=== PATIENT | male | born 1995 | race Two or more races ===

== ENCOUNTER 2024-04-29 08:38 | Emergency (ER) | payer OTHER, SELFPAY ==
[2024-04-29 08:41] VITALS: BP 141/79; PULSE 65; RESP 18; TEMP 36.7; O2SAT 100; BMI 27.2
--- NOTE | 2024-04-29 08:56 | ED_ITS ---
HPI - Back Pain/Injury General Chief Complaint: Back Pain/Injury Stated Complaint: back pain Time Seen by Provider: 04/29/24 08:55 Source: patient Mode of arrival: ambulatory Limitations: no limitations History of Present Illness ED Provider: Moni Otot NP HPI Narrative: Patient is a 28-year-old male who presents emergency department for evaluation of lower back pain. Initial nursing triage reports middle of the lower back however he is pointing to the right paraspinal muscle region radiates sometimes down into his buttock. He denies any notable precipitating injury. However he does state that he lifts heavy dumbbells at the gym and does a lot of heavy lifting at work. The pain is intermittent and at times feels slightly improved if he stretches. He has not taken any OTC analgesics for this, has not applied ice or heat or any topical remedies. Denies fevers, chills, burning with micturition, urinary frequency/urgency/hesitancy, bladder or bowel dysfunction, numbness or tingling of the perineum or bilateral legs. Denies any recent surgical procedures, any known immune compromising conditions, personal history of cancer, or IV drug usage. MD elicited complaint: back pain Related Data Previous Rx's ?Medication ?Instructions ?Recorded cyclobenzaprine 5 mg tablet 5 mg PO TID PRN muscle spasm #14 04/29/24 tabs ibuprofen 600 mg tablet 600 mg PO Q6H PRN pain #30 tabs 04/29/24 Allergies Allergy/AdvReac Type Severity Reaction Status Date / Time Penicillins Allergy Unknown Unknown Verified 04/29/24 08:44 Review of Systems Review of Systems: Yes all other systems are reviewed and are negative [facility] Past Medical History Attestation statement: The following information was validated with the patient. Source: old records reviewed Surgical History No pertinent past surgical history Family History Family History Mother Hypertension Father Hypertension Diabetes Social History Social History Housing: Apartment Alcohol intake: current Alcohol intake frequency: a few times a week Alcohol type: beer, wine and hard liquor Patient Tobacco Use Status: Former Tobacco user Tobacco use type: Cigarette e-Cigarette/Vaping Use: Never Used Second Hand Smoke Exposure: No service: No Current occupational status: employed Current occupational exposures/hazards: No Cognitive needs: No Hearing needs: No Vision needs: No Physical Exam Vital Signs: Vital Signs: Last Vital Signs Temp 98.0 F 04/29/24 08:41 Pulse 65 04/29/24 08:41 Resp 18 04/29/24 08:41 BP 141/79 H 04/29/24 08:41 Pulse Ox 100 04/29/24 08:41 O2 Del Method Room Air 04/29/24 08:41 BMI result Body Mass Index 27.2 Appearance: Alert.?Oriented to person, place and time. No acute distress.?Normal affect. Eyes: Pupils equal, round and reactive to light.? ENT: Pharynx normal.?? Neck: Normal inspection.? Neck supple.?? CVS: Heart sounds normal. Normal heart rate and rhythm.? Pulses normal; bilateral radial pulses 2+, bilateral posterior tibial/dorsalis pedis pulses 2+.? Respiratory: No respiratory distress.? Lung sounds clear to auscultation martina aterally?? Abdomen: Soft and non-tender. Normoactive bowel sounds. No pulsatile mass.?? Skin: Skin warm and dry.? Normal skin color.? Normal skin turgor.?? Extremities: No lower extremity edema.? No calf ttp? Back: + mild paraspinal muscular tenderness from thoracic region to lumbar region. No CVA tenderness. No midline spinal tenderness, step-off's, or deformity. Full ROM intact in bilateral lower extremities. Straight leg test negative on right; Straight leg test negative on left. No rashes, lesions, areas of induration or fluctuance, or signs of infection noted., Neuro: Moves all extremities spontaneously. 5/5 strength in hip extension/flexion, abduction, adduction. Sensation to light touch intact bilaterally. Patellar and Achilles reflex 2+ bilaterally. No ataxia, gait normal and steady.. No focal neuro deficits. Medical Decision Making Medical Decision Making MDM Narrative: Patient is a 28-year-old male presents emergency department for evaluation right back pain as per HPI without any known precipitating injury however does engage in heavy lifting, on examination has notable tenderness to the right paraspinal muscles and palpable spasming, at this time I suspect pain is most consistent with muscular pain, although cannot completely exclude herniated disc. On neurological exam there are no deficits. Generally Atraumatic in nature, no acute bony tenderness, unlikely to be spinal fracture. No recent fevers, unintentional weight loss, history of IVDA, high-risk past medical history, immunosuppression, recent surgery or lumbar puncture to suggest spinal infection, epidural abscess, malignancy. Not consistent with AAA or dissection. No genitourinary symptoms, afebrile, no CVA tenderness, unlikely urinary tract infection, pyelonephritis, renal colic. No history of nephrolithiasis/ureteral calculi. Plan for discharge home with conservative treatment, NSAID, and muscle relaxer for pain unrelieved by such, and follow-up with primary care provider, and patient agreed with plan. Differential Diagnosis Differential Diagnoses: The differential diagnosis associated with the presentation includes ( see narrative above) Admission/Observation Consideration of admission/observation: Escalation of care including admiss ion/observation considered ( see narrative above) External Record Review External record reviewed: Outpatient record Prescription Management I considered prescription management with: Pain Medication Discharge Plan Discharge Clinical Impression: Strain of lumbar region Patient Disposition: Home, Self-Care Instructions: Acute Low Back Pain (ED), R.I.C.E. Treatment (ED), Lower Back Exercises (ED) Additional Instructions: You can take ibuprofen 200 mg, 3 tablets (600mg) every 6-8 hours as needed for pain, in addition to Tylenol 500 mg, 2 tablets (1,000mg) every 4-6 hours as needed for pain, but not to exceed 3 doses daily (3,000mg).? For pain that is unrelieved by ibuprofen or Tylenol I have sent a prescription for a muscle relaxer to your pharmacy. Cyclobenzaprine/Flexeril- this medication may make you drowsy, you should not drive, drink alcohol, or work while taking this medication. Please take this medication for the 1st time in the evening when you were able to be home for the remainder of the day. You can take the medication up to 3 times a day typically every 6-8 hours so long as you can tolerate it during the day As discussed, if your pain persists after a week you should consider follow-up with your primary care doctor, they may consider radiographic imaging and/or course of physical therapy. You may return to emergency department any new or worsening symptoms or concerns Prescriptions: New ibuprofen 600 mg tablet 600 mg PO Q6H PRN (Reason: pain) Qty: 30 0RF cyclobenzaprine 5 mg tablet 5 mg PO TID PRN (Reason: muscle spasm) Qty: 14 0RF Referrals: Karla Martell MD [Primary Care Provider] - Print Language: Maldivian
[2024-04-29 09:36] VITALS: BP 141/79; PULSE 65; RESP 18; TEMP 36.7; O2SAT 100
== END 2024-04-29 09:37 | disposition home or self-care (01) ==
PROVIDERS: Emergency Provider Emergency Medicine; PCP Internal Medicine
DX: S39.012A Strain of muscle, fascia and tendon of lower back, initial encounter (principal); X50.0XXA Overexertion from strenuous movement or load, initial encounter; Z87.891 Personal history of nicotine dependence; Y93.B3 Activity, free weights; Y92.59 Other trade areas as the place of occurrence of the external cause; Y99.9 Unspecified external cause status
CPT/HCPCS: 99282; 99283

== ENCOUNTER 2024-08-15 16:52 | Outpatient (AMB) | payer OTHER, SELFPAY ==
--- NOTE | 2024-08-15 16:56 | A.OFFPC_ITS ---
Vital Signs 08/15/24 16:58 Height 6 ft Weight 204 lb BMI 27.7 BP 120/78 Blood Pressure Location Lt brachial Position Sitting Intake Visit Reasons: Med Review Instrument Designer Required: No Accompanied by: Self / Same As Patient Allergies Penicillins Allergy (Unknown, Verified 08/15/24 17:12) Unknown Medication List - Last Reconciled 08/15/24 by Karla Romero MD No Known Home Meds Tobacco use date assessed: 08/15/24 Dental Screening Dental Screen Date: 08/15/24 Did you have a dental visit in the last 12 months?: Yes Did you have a dental problem in the last 6 months where you did not have access to dental care?: No Was dental information given to patient?: Patient has dentist HPI HPI Comments History of Present Illness Details The patient is a 29-year-old male presenting with right upper quadrant abdominal pain. Onset of symptoms began in March with a noticeable swelling in the back, leading to an urgent care visit where anti-inflammatory and analgesic medications were prescribed. Current symptoms persist with no reported issues with urination or stool. The patient?s plan includes a follow-up ultrasound to assess the nature of the swelling and confirm any underlying anatomical changes. Additionally, the patient has a background of moderate depressive disorder and anxiety disorder, although he has not sought formal treatments or therapies, preferring counseling over medication. [facility] Surgical History No pertinent past surgical history Family History Mother Hypertension Father Hypertension Diabetes Social History Housing: Apartment Alcohol intake: current Alcohol intake frequency: a few times a week Alcohol type: beer, wine and hard liquor Patient Tobacco Use Status: Former Tobacco user Tobacco use type: Cigarette e-Cigarette/Vaping Use: Currently Using Second Hand Smoke Exposure: No service: No Current occupational status: employed Current occupational exposures/hazards: No Cognitive needs: No Hearing needs: No Vision needs: No Questionnaire PHQ-9 Over the last 2 weeks, how often have you been bothered by any of the following problems? 1. Little interest or pleasure in doing things: nearly every day 2. Feeling down, depressed, or hopeless: nearly every day 3. Trouble falling or staying asleep, or sleeping too much: nearly every day 4. Feeling tired or having little energy: nearly every day 5. Poor appetite or overeating: not at all 6. Feeling bad about yourself - or that you are a failure or have let yourself or your family down: not at all 7. Trouble concentrating on things, such as reading the newspaper or watching television: not at all 8. Moving or speaking so slowly that other people could have noticed. Or the opposite - being so fidgety or restless that you have been moving around a lot more than usual: not at all 9. Thoughts that you would be better off or of hurting yourself in some way: not at all Total score: 12 Depression Screening Interpretation: Positive Depression Screening Follow-up: Existing condition, Follow-up Visit Requested and Declines treatment Depression Screening Done: Yes 23472 - PHQ-9 Billing: Yes Source: Developed by Drs. Alex Candelario, Benita Espino, Abisai Christopher and colleagues, with an educational mikey from [employer]. Thrive Questionnaire Date Thrive assessed: 08/15/24 I am a: Patient What is your living situation today?: I have a steady place to live Within the past 12 months, did the food you bought not last and you didn't have the money to get more?: Never true Within the past 12 months, did you worry whether your food would run out before you got money to buy more?: Never true Do you have trouble paying for medicines?: No Do you have trouble getting transportation to medical appointments?: No Do you have trouble paying your heating and electricity bill?: No Do you have trouble taking care of your child, family member or friend?: No Do you have trouble with day-to-day activities such as bathing, preparing meals, shopping, managing finances, etc.?: No Are you currently unemployed and looking for a job?: No Are you interested in more education?: No Please select the resources that you would like help with: None Currently or been in a relationship where the following occur: No concerns reported THRIVE Score: 0 AUDIT C Alcohol Use Questionnaire (AUDIT-C) 1. How often do you have a drink containing alcohol?: Monthly or less 2. How many drinks containing alcohol do you have on a typical day when you are drinking?: 3 or 4 3. How often do you have six or more drinks on one occasion?: Never Total Score: 2 SERJIO-7 AMB Questionnaire SERJIO-7 Date SERJIO - 7 assessed: 08/15/24 Feeling nervous, anxious, or on edge: 3 = Nearly every day Not being able to stop or control worryin = Not at all Worrying too much about different things: 3 = Nearly every day Trouble relaxin = Not at all Being so restless that it is hard to sit still: 0 = Not at all Becoming easily annoyed or irritable: 1 = Several days Feeling afraid as if something awful might happen: 1 = Several days Total SERJIO-7 score (0-4 normal; 5-9 mild; 10-14 moderate; 15-21 severe): 8 Source: Developed by Drs. Alex Candelario, Benita Espino, Abisai Christopher and colleagues, with an educational mikey from [employer]. SERJIO-7 Assessment Billing SERJIO-7 Assessment Tool: SERJIO-7 Assessment 96832 Review of Systems Const All systems reviewed & are unremarkable except as noted in HPI and below Card Denies chest pain at rest, Denies chest pain with activity, Denies edema, Denies irregular heart rhythm, Denies claudication, Denies dyspnea, Denies dyspnea on exertion, Denies orthopnea, Denies paroxysmal nocturnal dyspnea and Denies slow heart rate Resp Denies cough, Denies dyspnea and Denies dyspnea on exertion GI Denies abdominal pain, Denies change in bowel habits, Denies excessive flatus, Denies nausea and Denies vomiting Physical exam (Primary Care) Vital Signs: Last Vital Signs BP 120/78 08/15/24 16:58 BMI result Body Mass Index 27.7 Tobacco/Smoking Status: Tobacco use Status Tobacco use date assessed 08/15/24 08/15/24 17:08 Patient Tobacco Use Status Former Tobacco user 08/15/24 17:08 Tobacco use type Cigarette 08/15/24 17:08 e-Cigarette/Vaping Use Currently Using 08/15/24 17:08 PHQ-9: PHQ-9 Score PHQ-9: Total score 12 08/15/24 17:08 Depression Screening Interpretation: Positive Depression Screening Follow-up: Existing condition, Follow-up Visit Requested and Declines treatment Thrive Assessment: Date of Thrive Assessment Date Thrive assessed 08/15/24 08/15/24 17:08 Currently or been in a relationship where the following occur: No concerns reported Resp Effort & Inspection: normal respiratory effort Auscultation: clear to auscultation bilaterally Cardio Jugular venous distension: no JVD Rate: regular rate Rhythm: regular rhythm Heart sounds: S1 normal heart sound present and S2 normal heart sound present GI Inspection: Yes normal to inspection Palpation (GI): Soft to palpation and nontender Auscultation: normal bowel sounds Coding Level of Care Code Est Pt Level 3 (68341) Complex EM visit Add On G2211 Diagnoses Right upper quadrant abdominal pain R10.11 Moderate recurrent major depression F33.1 SERJIO (generalized anxiety disorder) F41.1 Additional Codes PHQ-9 - 86282 - PHQ-9 Billing: Yes ([id number]) SERJIO-7 Assessment Billing - SERJIO-7 Assessment Tool: SERJIO-7 Assessment 14734 ([id number]) Time Spent (min) 19 Assessment & Plan Assessment & Plan (1) Right upper quadrant abdominal pain: Code(s): R10.11 - Right upper quadrant pain Category: Medical (2) Moderate recurrent major depression: Code(s): F33.1 - Major depressive disorder, recurrent, moderate Category: Medical (3) SERJIO (generalized anxiety disorder): Code(s): F41.1 - Generalized anxiety disorder Category: Medical Plan The patient will undergo an ultrasound to assist in diagnosing the underlying cause of his persistent back pain and swelling. If the ultrasound reveals any significant findings, appropriate management strategies will be discussed. For the patient's mental health concerns, focus will be on non-pharmacological interventions, with counseling being the suggested route based on the patient?s preference. Coordination for the ultrasound will be ensured for timely analysis and follow-up care. Patient was informed and verbally consented to the use of an ambient scribe for clinic note documentation during this visit. During our discussion, I advised the patient that an ultrasound is necessary to evaluate the back swelling. We discussed the potential for anatomical changes being a factor, and I explained that the ultrasound will help determine our next steps. The patient was informed of the non-pharmacological options for handling his moderate depressive and anxiety disorders and agreed to consider counseling. We will follow up on the ultrasound results to decide the further course of action. Consent for the ultrasound and understanding have been confirmed by the patient. Orders: Orders US abdomen complete Today R10.11 - Right upper quadrant pain Patient Instructions: - Await scheduling for ultrasound to examine back swelling - Monitor symptoms and report any new or worsening changes - Consider beginning counseling for depression and anxiety - Abstain from substance use that may aggravate health - Follow up for results discussion after ultrasound completion
[2024-08-15 16:58] VITALS: BP 120/78; BMI 27.7
== END 2024-08-15 17:24 | disposition home or self-care (01) ==
LOC: HO.HMCH 16:53
PROVIDERS: PCP Internal Medicine; Visit Provider Internal Medicine
DX: R10.11 Right upper quadrant pain (principal); F33.1 Major depressive disorder, recurrent, moderate; F41.1 Generalized anxiety disorder

== ENCOUNTER → 2024-08-15 16:52 | Outpatient (BNVA) | payer OTHER, SELFPAY | PROVIDERS: PCP Internal Medicine; Visit Provider Internal Medicine | DX: R10.11 Right upper quadrant pain (principal); F33.1 Major depressive disorder, recurrent, moderate; F41.1 Generalized anxiety disorder | CPT/HCPCS: 96127 ==

== ENCOUNTER 2024-09-22 08:05 | Outpatient (REF) | payer OTHER, SELFPAY ==
--- NOTE | ~2024-09-22 | US_ITS ---
EXAMINATION: US ABDOMEN COMPLETE CLINICAL INFORMATION: Right upper quadrant abdominal pain. COMPARISON: None available. TECHNIQUE: Real-time ultrasound of the abdomen using grayscale and color Doppler technique. FINDINGS: PANCREAS: No peripancreatic fluid collections. No main pancreatic ductal dilatation. ABDOMINAL AORTA: No gross aneurysm or dissection. INFERIOR VENA CAVA: No intraluminal abnormality. LIVER: Liver is normal measuring. No nodular contour. Normal echotexture. No solid or cystic lesion. Main portal vein is patent with normal hepatopedal flow direction. No intrahepatic biliary ductal dilatation. GALLBLADDER: Fluid-filled. No pericholecystic fluid collection or gallbladder wall thickening. COMMON BILE DUCT: 2 mm. RIGHT KIDNEY: 13 cm. Normal echotexture. Normal cortical thickness. No solid or cystic lesion. No hydronephrosis. Normal flow on color Doppler interrogation of the renal hilum.. LEFT KIDNEY: 11 cm. Normal echotexture. Normal renal cortical thickness. No subcutaneous or cystic lesion. No hydronephrosis. Normal flow on color Doppler interrogation of the renal hilum. SPLEEN: 9 cm.. FREE FLUID: None. US/US abdomen complete IMPRESSION: No cholelithiasis. No hydronephrosis. No ascites. Normal exam. Electronically signed by: Honorio Frost MD 09/25/2024 02:14 PM EDT
== END 2024-09-22 08:06 | disposition home or self-care (01) ==
LOC: HO.US 08:05
PROVIDERS: PCP Internal Medicine; Visit Provider Internal Medicine
DX: R10.11 Right upper quadrant pain (principal)
CPT/HCPCS: 76700

== ENCOUNTER → 2024-09-22 08:07 | Outpatient (BNV) | payer OTHER, SELFPAY | PROVIDERS: PCP Internal Medicine; Visit Provider Radiology Diagnostic Radiology | DX: R10.11 Right upper quadrant pain (principal) | CPT/HCPCS: 76700 ==

== ENCOUNTER 2025-01-09 17:04 | Outpatient (AMB) | payer OTHER, SELFPAY ==
[2025-01-09 17:11] VITALS: BP 132/76; PULSE 74; O2SAT 96; BMI 27.8
--- NOTE | 2025-01-09 17:11 | MHC.PC.OV ---
Vital Signs 01/09/25 17:11 Height 6 ft Weight 205 lb 2 oz BMI 27.8 BP 132/76 Blood Pressure Location Lt brachial Position Sitting Pulse 74 Pulse Source Pulse Oximeter Pulse Oximetry (%) 96 Oxygen Delivery Method Room Air Intake Visit Reasons: annual exam Director Of Recruitment Required: No Accompanied by: Self / Same As Patient Allergies Penicillins Allergy (Unknown, Verified 01/09/25 17:17) Unknown Medication List - Last Reconciled 01/09/25 by Karla Romero MD No Known Home Meds Tobacco use date assessed: 01/09/25 Dental Screening Dental Screen Date: 01/09/25 Did you have a dental visit in the last 12 months?: Yes Did you have a dental problem in the last 6 months where you did not have access to dental care?: No Was dental information given to patient?: Patient has dentist HPI HPI Comments History of Present Illness Details The patient is a 29-year-old male presenting for an annual physical examination. The patient reports a penicillin allergy and does not take any medications. He has no history of surgeries. Family history is significant for diabetes and hypertension in his father, who due to kidney problems. His mother is alive and has hypertension. The patient has a history of smoking but currently consumes alcohol a few times a week, including beer, wine, and liquor. He experiences mild depression and anxiety, as indicated by a PHQ score of 97. ON LICENSE OF [facility] Surgical History No pertinent past surgical history Family History (Updated 01/09/25 @ 17:22 by Karla Romero MD) Mother Hypertension Father Hypertension Diabetes CAD (coronary artery disease) Social History Housing: Apartment Alcohol intake: current Alcohol intake frequency: a few times a week Alcohol type: beer, wine and hard liquor Patient Tobacco Use Status: Former Tobacco user Tobacco use type: Cigarette e-Cigarette/Vaping Use: Currently Using Second Hand Smoke Exposure: No service: No Current occupational status: employed Current occupational exposures/hazards: No Cognitive needs: No Hearing needs: No Vision needs: No Questionnaire PHQ-9 Over the last 2 weeks, how often have you been bothered by any of the following problems? 1. Little interest or pleasure in doing things: more than half the days 2. Feeling down, depressed, or hopeless: several days 3. Trouble falling or staying asleep, or sleeping too much: several days 4. Feeling tired or having little energy: several days 5. Poor appetite or overeating: not at all 6. Feeling bad about yourself - or that you are a failure or have let yourself or your family down: several days 7. Trouble concentrating on things, such as reading the newspaper or watching television: several days 8. Moving or speaking so slowly that other people could have noticed. Or the opposite - being so fidgety or restless that you have been moving around a lot more than usual: not at all 9. Thoughts that you would be better off or of hurting yourself in some way: not at all Total score: 7 Depression Screening Interpretation: Positive Depression Screening Follow-up: Existing condition and Follow-up Visit Requested Depression Screening Done: Yes 38986 - PHQ-9 Billing: Yes Source: Developed by Drs. Alex Candelario, Benita Espino, Abisai Christopher and colleagues, with an educational mikey from [employer]. Thrive Questionnaire Date Thrive assessed: 01/09/25 I am a: Patient What is your living situation today?: I have a place to live, but I am worried about losing it in the future Within the past 12 months, did the food you bought not last and you didn't have the money to get more?: Never true Within the past 12 months, did you worry whether your food would run out before you got money to buy more?: I choose not to answer this question Do you have trouble paying for medicines?: No Do you have trouble getting transportation to medical appointments?: No Do you have trouble paying your heating and electricity bill?: I choose not to answer this question Do you have trouble taking care of your child, family member or friend?: I choose not to answer this question Do you have trouble with day-to-day activities such as bathing, preparing meals, shopping, managing finances, etc.?: Yes Are you currently unemployed and looking for a job?: No Are you interested in more education?: Yes Please select the resources that you would like help with: None Currently or been in a relationship where the following occur: I choose not to answer THRIVE Score: 1 AUDIT C Alcohol Use Questionnaire (AUDIT-C) 1. How often do you have a drink containing alcohol?: Monthly or less 2. How many drinks containing alcohol do you have on a typical day when you are drinking?: 3 or 4 3. How often do you have six or more drinks on one occasion?: Never Total Score: 2 Score Reviewed/Action Taken: No SERJIO-7 AMB Questionnaire SERJIO-7 Date SERJIO - 7 assessed: 01/09/25 Feeling nervous, anxious, or on edge: 0 = Not at all Not being able to stop or control worryin = Nearly every day Worrying too much about different things: 3 = Nearly every day Trouble relaxin = More than half the days Being so restless that it is hard to sit still: 1 = Several days Becoming easily annoyed or irritable: 1 = Several days Feeling afraid as if something awful might happen: 1 = Several days Total SERJIO-7 score (0-4 normal; 5-9 mild; 10-14 moderate; 15-21 severe): 11 Source: Developed by Drs. Alex Candelario, Benita Espino, Abisai Christopher and colleagues, with an educational mikey from [employer]. SERJIO-7 Assessment Billing SERJIO-7 Assessment Tool: SERJIO-7 Assessment 05864 Review of Systems Const All systems reviewed & are unremarkable except as noted in HPI and below Card Denies chest pain at rest, Denies chest pain with activity, Denies edema, Denies irregular heart rhythm, Denies claudication, Denies dyspnea, Denies dyspnea on exertion, Denies orthopnea, Denies paroxysmal nocturnal dyspnea and Denies slow heart rate Resp Denies cough, Denies dyspnea and Denies dyspnea on exertion GI Denies abdominal pain, Denies change in bowel habits, Denies excessive flatus, Denies nausea and Denies vomiting Physical exam (Primary Care) Vital Signs: Last Vital Signs Pulse 74 01/09/25 17:11 BP 132/76 01/09/25 17:11 Pulse Ox 96 01/09/25 17:11 Oxygen Delivery Method Room Air 01/09/25 17:11 BMI result Body Mass Index 27.8 Tobacco/Smoking Status: Tobacco use Status Tobacco use date assessed 01/09/25 01/09/25 17:13 Patient Tobacco Use Status Former Tobacco user 08/12/25 17:13 Tobacco use type Cigarette 01/09/25 17:13 e-Cigarette/Vaping Use Currently Using 01/09/25 17:13 PHQ-9: PHQ-9 Score PHQ-9: Total score 7 01/09/25 17:20 Depression Screening Interpretation: Positive Depression Screening Follow-up: Existing condition and Follow-up Visit Requested Thrive Assessment: Date of Thrive Assessment Date Thrive assessed 01/09/25 01/09/25 17:13 Currently or been in a relationship where the following occur: I choose not to answer HENMT Head: Yes normal to inspection, Yes normocephalic and Yes atraumatic Ears: external ears normal Eyes General: appearance normal, both eyes and all related structures Eyelids: Yes eyelids normal Conjunctivae: conjunctivae normal Neck Neck: Yes normal visual inspection and Yes supple Resp Effort & Inspection: normal respiratory effort Auscultation: clear to auscultation bilaterally Cardio Jugular venous distension: no JVD Rate: regular rate Rhythm: regular rhythm Heart sounds: S1 normal heart sound present and S2 normal heart sound present GI Inspection: Yes normal to inspection Palpation (GI): Soft to palpation and nontender Auscultation: normal bowel sounds Skin General skin exam: no rashes or lesions noted Neuro General: no focal motor deficits Extrem General: Yes full ROM Psych Appearance: grossly normal Coding Level of Care Code Est Pt Prev Care 18-39y(15361) Diagnoses Physical exam Z00.00 Moderate recurrent major depression F33.1 Additional Codes SERJIO-7 Assessment Billing - SERJIO-7 Assessment Tool: SERJIO-7 Assessment 48115 ([id number]) PHQ-9 - 63016 - PHQ-9 Billing: Yes ([id number]) Time Spent (min) 30 Assessment & Plan Assessment & Plan (1) Physical exam: Code(s): Z00.00 - Encounter for general adult medical examination without abnormal findings Category: Medical (2) Moderate recurrent major depression: Code(s): F33.1 - Major depressive disorder, recurrent, moderate Category: Medical Plan The patient will undergo laboratory testing to assess cholesterol, glucose, renal, and hepatic function as part of routine health maintenance. Given the patient's mild depression and anxiety, monitoring and potential follow-up with mental health services may be considered if symptoms persist or worsen. Patient was informed and verbally consented to the use of an ambient scribe for clinic note documentation during this visit. Orders: Orders Lipid Panel Today Z00.00 - Encounter for general adult medical examination without abnormal findings Comprehensive [place]. Panel Fast Today Z00.00 - Encounter for general adult medical examination without abnormal findings
== END 2025-01-09 17:27 | disposition home or self-care (01) ==
LOC: HO.HMCH 17:05
PROVIDERS: PCP Internal Medicine; Visit Provider Internal Medicine
DX: Z00.00 Encounter for general adult medical examination without abnormal findings (principal); F33.1 Major depressive disorder, recurrent, moderate

== ENCOUNTER → 2025-01-09 17:04 | Outpatient (BNVA) | payer OTHER, SELFPAY | PROVIDERS: PCP Internal Medicine; Visit Provider Internal Medicine | DX: Z00.00 Encounter for general adult medical examination without abnormal findings (principal); F33.1 Major depressive disorder, recurrent, moderate; Z87.891 Personal history of nicotine dependence; Z88.0 Allergy status to penicillin | CPT/HCPCS: 96127 ==

== ENCOUNTER 2025-02-03 07:46 | Outpatient (REF) | payer OTHER, SELFPAY ==
[2025-02-03 10:56] LABS: Alanine Aminotransferase 47 U/L (0-40); Albumin Level 4.7 g/dL (3.5-5.0); Alkaline Phosphatase 69 U/L (39-117); Anion Gap 12 (12-20); Aspartate Amino Transferase 37 U/L (5-37); Blood Urea Nitrogen 15 mg/dL (9-16); Calcium 8.9 mg/dL (8.4-10.2); Carbon Dioxide 28 mmol/L (22-29); Chloride 105 mmol/L (96-108); Cholesterol 164 mg/dL (<200); Estimated Glomerular Filt Rate > 60; HDL Cholesterol 36 mg/dL (>40); Potassium 4.6 mmol/L (3.3-5.1); Sodium 140 mmol/L (135-145); Total Protein 8.0 g/dL (6.5-8.0); Triglycerides 46 mg/dL (<150)
== END 2025-02-03 07:47 | disposition home or self-care (01) ==
LOC: HO.LAB 07:46
PROVIDERS: PCP Internal Medicine; Visit Provider Internal Medicine
DX: Z00.00 Encounter for general adult medical examination without abnormal findings (principal); Z13.6 Encounter for screening for cardiovascular disorders
CPT/HCPCS: 36415; 80053; 80061